=== PATIENT | male | born 1940 | race Caucasian/White ===

== ENCOUNTER 2021-02-14 11:02 | Observation (INO) ==
[2021-02-14] MEDS ORDERED: LABETALOL HCL IV 5 MG/ML 20ML IV STA (11:46)
[2021-02-14] MEDS ORDERED: MECLIZINE HCL 25 MG TAB PO STA (11:46)
[2021-02-14] MEDS ORDERED: ONDANSETRON INJ 2 MG/ML 2 ML VIAL IV STA (11:46)
[2021-02-14 11:47] LABS: Hematocrit (blood only) 43.1 % (42-52); Mean Corpuscular Hemoglobin 31.6 pg (25-34); Mean Corpuscular Hgb Conc 34.8 g/dL (32-36); Mean Corpuscular Volume 90.9 fL (80-100); Platelet Count 143 K/uL (130-400); RDW Coefficient of Variation 13.3 % (11.5-14.5); RDW Standard Deviation 44.3 fL (36.4-46.3); Red Blood Count 4.74 M/uL (4.7-6.1); White Blood Count 7.93 K/uL (4.8-10.8)
--- NOTE | 2021-02-14 11:48 | Emergency Department Note ---
Impression & Plan TIA (transient ischemic attack), COPD (chronic obstructive pulmonary disease), Vertigo, History of prostate cancer ED Provider Note NAME: DANA MIN Jr AGE: 80 SEX: M : 1940 ARRIVES VIA: Walk-In INFORMANT: Patient, ED PROVIDER(S): Rajan Moreno MD Chief Complaint: Vertigo, left lower extremity weakness HPI: Patient does present with the above symptoms. The patient states that he woke up and experienced this around 11/07/1929. Patient denies any facial droop or slurred speech. No prior history of TIA or stroke. The patient does feel as though he has vertigo and feels as though he is spinning. The patient is a known history of vertigo. Patient denies any chest pains or shortness of breath. Patient denies any abdominal pain or nausea vomiting. Patient does feel as though his left lower extremity is changed. The patient cannot further explain it but thought maybe it was weak earlier today. Patient denies any falls or trauma. He is not take any blood thinning medications. The patient's weakness has improved. At the time that this occurred the patient felt as though he was unable to steadily stand on it. ROS: See HPI for pertinent positives and negatives. A total of 10 systems were reviewed and otherwise negative. Past medical history: See below Surgical history: See below Social history: See below Physical Exam: GENERAL: NAD, wearing a mask, non-toxic. EYE EXAM: Normal conjunctiva. PERRL, no anisocoria and EOM's grossly intact w/o pain. Arcus senilis present bilaterally. NECK: Supple, no nuchal rigidity, no adenopathy, non-tender. No signs of meningismus. No carotid bruits appreciated. LUNGS: Clear to auscultation. Normal chest wall mechanics. HEART: NSR, no MRG. ABDOMEN: Abdomen soft, non-tender, normo-active bowel sounds, no masses, no rebound or guarding. BACK: No CVA TTP. SKIN: No rashes and no bruising. UPPER EXTREMITIES: Upper extremities are grossly normal. LOWER EXTREMITIES: Grossly normal, no edema. NEURO EXAM: A&O x3, cranial nerves II-XII grossly intact, normal speech, moves all 4 extremities on command w/o issue. Good finger to nose, no drift, no sensory deficits. Good [id number] bilaterally. Differential diagnoses: Infection, dehydration, metabolic abnormality, hypo/hyperglycemia, electrolyte disturbance, anemia, hypoxia, cardiac sources, intracerebral event, toxicologic, neurologic, as well as other pathologies. Course: Patient was seen and evaluated the bedside. Full history physical exam was performed. EKG interpreted by me Sinus with first-degree AV block, rate of 67, prolonged AL, normal axis, T wave inversion in lead III not in contiguous leads. No obvious ST elevations. Imaging Studies: See Below Cardiac monitoring: An order was placed for continuous cardiac monitoring. The monitor shows a rate of 65 with sinus rhythm. MDM: Patient was seen for vertigo and left lower extremity weakness. During my a ssessment the patient had an NIH of 0. Patient did have bladder completed along with CT head and CT angiography of the head neck. Patient was also treated symptomatically. Patient is a normal white count and hemoglobin. The patient's kidney function is unremarkable. Covid negative. CT head and CT angiogram of his head neck are negative acute for aneurysm dissection or ICH. Patient does have right upper lobe process and was informed of these findings. The patient does have a known history of COPD emphysema. Patient is not a smoker. Given the patient's weakness with the vertigo and the patient states that his vertigo is still present but at its baseline as he suffers chronically from this but it is improved. Given this with the associated weakness TIA is certainly possibility. I did speak to the on-call hospitalist Dr. Hahn and the patient was admitted to the medicine service. Past Med/Surg History Medical History (Updated 02/14/21 @ 17:20 by Rajan Moreno MD) COPD (chronic obstructive pulmonary disease) GERD (gastroesophageal reflux disease) History of prostate cancer Hypertension Vertigo Surgical History (Updated 02/14/21 @ 17:13 by Rajan Moreno MD) No pertinent past surgical history Social History Smoking Status: Former smoker Feels Safe at Home: Yes Allergies Allergies Allergy/AdvReac Type Severity Reaction Status Date / Time No Known Allergies Allergy Unverified 02/14/21 12:25 Home Meds Home Medications Medication Instructions Recorded Confirmed fluticasone furoate 100 1 inh INHALATION Q2D 02/14/21 02/14/21 mcg-vilanterol 25 mcg/dose inhalation powder (Breo Ellipta) losartan 25 mg tablet 25 mg PO DAILY 02/14/21 02/14/21 multivitamin 1 tab PO DAILY 02/14/21 02/14/21 pantoprazole 40 mg tablet,delayed 40 mg PO DAILY 02/14/21 02/14/21 release Results & Data (ED) Vital Signs Vital Signs - 24 hr 02/14/21 11:22 02/14/21 11:43 02/14/21 11:49 Temperature 36.6 C Temperature Source Temporal Artery Scan Pulse Rate 71 73 Pulse Rate [Left Apical] Pulse Rate from SpO2 Sensor 74 Respiratory Rate 20 14 Respiratory Effort / Characteristics Non-Labored Spontaneous Respiratory Depth Normal Respiratory Pattern Regular Blood Pressure 217/88 H 202/106 H Blood Pressure [Right Arm] Blood Pressure Mean 131 138 Blood Pressure Mean [Right Arm] Blood Pressure Position Sitting Blood Pressure Position [Right Arm] Pulse Oximetry 99 100 99 Oxygen Delivery Method Room Air Room Air Sepsis Recent Fever Within 48 Hours No Sepsis New/Unexplained Change in Mental Status No Sepsis Action Taken by Nursing No Action Required 02/14/21 11:50 02/14/21 12:00 02/14/21 12:10 Temperature Temperature Source Pulse Rate 60 62 56 L Pulse Rate [Left Apical] Pulse Rate from SpO2 Sensor 57 L Respiratory Rate 16 15 13 Respiratory Effort / Characteristics Respiratory Depth Respiratory Pattern Blood Pressure 192/79 H Blood Pressure [Right Arm] Blood Pressure Mean 116 Blood Pressure Mean [Right Arm] Blood Pressure Position Blood Pressure Position [Right Arm] Pulse Oximetry 97 98 98 Oxygen Delivery Method Room Air Sepsis Recent Fever Within 48 Hours Sepsis New/Unexplained Change in Mental Status Sepsis Action Taken by Nursing 02/14/21 12:20 02/14/21 12:30 02/14/21 12:48 Temperature Temperature Source Pulse Rate 52 L 52 L Pulse Rate [Left Apical] 58 L Pulse Rate from SpO2 Sensor 52 L 51 L Respiratory Rate 17 20 18 Respiratory Effort / Characteristics Respiratory Depth Normal Respiratory Pattern Blood Pressure 180/82 H Blood Pressure [Right Arm] 168/86 H Blood Pressure Mean 114 Blood Pressure Mean [Right Arm] 113 Blood Pressure Position Blood Pressure Position [Right Arm] Lying Pulse Oximetry 96 98 100 Oxygen Delivery Method Room Air Sepsis Recent Fever Within 48 Hours Sepsis New/Unexplained Change in Mental Status Sepsis Action Taken by Nursing 02/14/21 15:35 02/14/21 16:56 Temperature Temperature Source Pulse Rate Pulse Rate [Left Apical] 55 L 55 L Pulse Rate from SpO2 Sensor Respiratory Rate 18 18 Respiratory Effort / Characteristics Respiratory Depth Respiratory Pattern Blood Pressure Blood Pressure [Right Arm] 192/81 H Blood Pressure Mean Blood Pressure Mean [Right Arm] 118 Blood Pressure Position Blood Pressure Position [Right Arm] Pulse Oximetry 99 Oxygen Delivery Method Room Air Sepsis Recent Fever Within 48 Hours Sepsis New/Unexplained Change in Mental Status Sepsis Action Taken by [place] Medications Current Medication List: was personally reviewed by me Laboratory Data Attestation: I reviewed the patient's lab results. Result diagrams: 02/14/21 11:02/14/21 11: Lab Results 02/14/21 02/14/21 02/14/21 Range/Units 11:30 11: 11:30 WBC 7.93 (4.8-10.8) K/uL RBC 4.74 (4.7-6.1) M/uL Hgb 15.0 (14.0-18.0) g/dL POC Hgb (14.0-18.0) g/dl Hct 43.1 (42-52) % POC Hct (42-52) % MCV 90.9 (80-100) fL MCH 31.6 (25-34) pg MCHC 34.8 (32-36) g/dL RDW Std Deviation 44.3 (36.4-46.3) fL RDW Coeff of Ania 13.3 (11.5-14.5) % Plt Count 143 (130-400) K/uL MPV 12.0 H (7.4-10.4) fL PT 10.3 (9.0-12.0) Seconds INR 1.0 (0.9-1.1) APTT 26.4 (21.0-31.0) Seconds PTT Ratio 1.0 POC Sodium (135-144) mmol/L Sodium 140 (136-145) mmol/L POC Potassium (3.3-5.0) mmol/L Potassium 4.2 (3.5-5.1) mmol/L POC Chloride (101-112) mmol/L Chloride 108 H (98-107) mmol/L Carbon Dioxide 26 (21-32) mmol/L POC Total CO2 (24-31) mmol/L Anion Gap 6.0 (3-11) POC Anion Gap (16-25) mmol/L POC BUN (7-18) mg/dl BUN 11 (7-18) mg/dl Creatinine 1.14 (0.6-1.4) mg/dl POC Creatinine (0.6-1.3) mg/dl Est Cr Clr Drug Dosing 55.0 ml/min Est GFR ( Amer) 70.0 ml/min Est GFR (Non-Af Amer) 60.4 ml/min BUN/Creatinine Ratio 9.8 L (10-20) Glucose 95 (70-99) mg/dl POC Glucose (70-99) mg/dl POC Glucose (other) (70-99) mg/dl Calcium 9.2 (8.5-10.1) mg/dl POC Ioniz Calcium Amanda (1.12-1.32) mmol/l Magnesium 2.2 (1.8-2.4) mg/dl Total Bilirubin 0.9 (0.2-1) mg/dl AST 19 (15-37) U/L ALT 25 (12-78) U/L Alkaline Phosphatase 89 (45-117) U/L Total Protein 7.6 (6.4-8.2) gm/dl Albumin 3.9 (3.4-5.0) gm/dl Globulin 3.7 (2.5-4.0) gm/dl Albumin/Globulin Ratio 1.1 (0.9-2) COVID-19 Eval Order SARS-CoV-2 (PCR) (Negative) 02/14/21 02/14/21 02/14/21 Range/Units 11:46 11:50 11:50 WBC (4.8-10.8) K/uL RBC (4.7-6.1) M/uL Hgb (14.0-18.0) g/dL POC Hgb (14.0-18.0) g/dl Hct (42-52) % POC Hct (42-52) % MCV (80-100) fL MCH (25-34) pg MCHC (32-36) g/dL RDW Std Deviation (36.4-46.3) fL RDW Coeff of Ania (11.5-14.5) % Plt Count (130-400) K/uL MPV (7.4-10.4) fL PT (9.0-12.0) Seconds INR (0.9-1.1) APTT (21.0-31.0) Seconds PTT Ratio POC Sodium (135-144) mmol/L Sodium (136-145) mmol/L POC Potassium (3.3-5.0) mmol/L Potassium (3.5-5.1) mmol/L POC Chloride (101-112) mmol/L Chloride (98-107) mmol/L Carbon Dioxide (21-32) mmol/L POC Total CO2 (24-31) mmol/L Anion Gap (3-11) POC Anion Gap (16-25) mmol/L POC BUN (7-18) mg/dl BUN (7-18) mg/dl Creatinine (0.6-1.4) mg/dl POC Creatinine (0.6-1.3) mg/dl Est Cr Clr Drug Dosing ml/min Est GFR ( Amer) ml/min Est GFR (Non-Af Amer) ml/min BUN/Creatinine Ratio (10-20) Glucose (70-99) mg/dl POC Glucose 91 (70-99) mg/dl POC Glucose (other) (70-99) mg/dl Calcium (8.5-10.1) mg/dl POC Ioniz Calcium Amanda (1.12-1.32) mmol/l Magnesium (1.8-2.4) mg/dl Total Bilirubin (0.2-1) mg/dl AST (15-37) U/L ALT (12-78) U/L Alkaline Phosphatase (45-117) U/L Total Protein (6.4-8.2) gm/dl Albumin (3.4-5.0) gm/dl Globulin (2.5-4.0) gm/dl Albumin/Globulin Ratio (0.9-2) COVID-19 Eval Order Covid19 at [facility] SARS-CoV-2 (PCR) NEGATIVE (Negative) 02/14/21 Range/Units 11:54 WBC (4.8-10.8) K/uL RBC (4.7-6.1) M/uL Hgb (14.0-18.0) g/dL POC Hgb 13.3 L (14.0-18.0) g/dl Hct (42-52) % POC Hct 39 L (42-52) % MCV (80-100) fL MCH (25-34) pg MCHC (32-36) g/dL RDW Std Deviation (36.4-46.3) fL RDW Coeff of Ania (11.5-14.5) % Plt Count (130-400) K/uL MPV (7.4-10.4) fL PT (9.0-12.0) Seconds INR (0.9-1.1) APTT (21.0-31.0) Seconds PTT Ratio POC Sodium 142 (135-144) mmol/L Sodium (136-145) mmol/L POC Potassium 3.9 (3.3-5.0) mmol/L Potassium (3.5-5.1) mmol/L POC Chloride 103 (101-112) mmol/L Chloride (98-107) mmol/L Carbon Dioxide (21-32) mmol/L POC Total CO2 24 (24-31) mmol/L Anion Gap (3-11) POC Anion Gap 19.0 (16-25) mmol/L POC BUN 11 (7-18) mg/dl BUN (7-18) mg/dl Creatinine (0.6-1.4) mg/dl POC Creatinine 1.2 (0.6-1.3) mg/dl Est Cr Clr Drug Dosing ml/min Est GFR ( Amer) ml/min Est GFR (Non-Af Amer) ml/min BUN/Creatinine Ratio (10-20) Glucose (70-99) mg/dl POC Glucose (70-99) mg/dl POC Glucose (other) 97 (70-99) mg/dl Calcium (8.5-10.1) mg/dl POC Ioniz Calcium Amanda 1.21 (1.12-1.32) mmol/l Magnesium (1.8-2.4) mg/dl Total Bilirubin (0.2-1) mg/dl AST (15-37) U/L ALT (12-78) U/L Alkaline Phosphatase (45-117) U/L Total Protein (6.4-8.2) gm/dl Albumin (3.4-5.0) gm/dl Globulin (2.5-4.0) gm/dl Albumin/Globulin Ratio (0.9-2) COVID-19 Eval Order SARS-CoV-2 (PCR) (Negative) Administered Medications Discontinued Medications Ioversol (Optiray 320 125ml) 120 ml IV ONCE ONE Stop: 02/14/21 12:49 Last Admin: 02/14/21 12:38 Dose: 120 ml Documented by: [id number] Labetalol HCl (Labetalol Hcl Iv 5 Mg/Ml 20ml) 10 mg IV NOW STA Stop: 02/14/21 11:47 Last Admin: 02/14/21 11:57 Dose: 10 mg Documented by: [id number] Cosigned by: [id number] Meclizine HCl (Meclizine Hcl 25 Mg Tab) 25 mg PO NOW STA Stop: 02/14/21 11:47 Last Admin: 02/14/21 11:58 Dose: 25 mg Documented by: [id number] Ondansetron HCl (Ondansetron Inj 2 Mg/Ml 2 Ml Vial) 4 mg IV NOW STA Stop: 02/14/21 11:47 Last Admin: 02/14/21 11:57 Dose: 4 mg Documented by: [id number] Imaging Data Radiologist's Impression: Chest X-Ray 02/14/21 11:29 XR chest 1V portable HISTORY: Vertigo. stroke alert COMPARISON: None. FINDINGS: The lungs are clear. Cardiac silhouette is normal in size. No pleural effusions. No pneumothorax. IMPRESSION: No acute process. ACT 112: Negative or not required by law. Electronically signed by: Alberto Mcdonald M.D. 02/14/2021 3:[address] 02/14/21 11:29 CT head/brain wo con CLINICAL HISTORY: Stroke Alert Technique: Contiguous axial CT images of the head were acquired from the base of the skull to the vertex without intravenous contrast administration. Images were viewed in brain, subdural and bone windows. Automated dose lowering techniques and/or adjustment according to patient size were utilized for this exam. Comparison: None available at the time of this dictation. Findings: The ventricles, basal cisterns, and cerebral sulci are normal. There is no acute intracranial hemorrhage or evidence of acute territorial infarction. Neither mass effect, shift of the midline structures, nor abnormal extra-axial fluid collections are shown. Imaged portions of the paranasal sinuses and mastoid air cells are clear. The orbits appear normal. There are no acute fractures of the calvaria or scalp swelling. Impression: No acute intracranial hemorrhage, no evidence of acute territorial infarction or other acute intracranial disease process. ACT 112: Negative or not required by law. Electronically signed by: Javier Meredith M.D. 02/14/2021 11:54 AM Head CTA 02/14/21 11:46 HEAD CTA HISTORY: vertigo, left lower extremity weakness TECHNIQUE: Multiaxial CT images of the head were performed both before and after the intravenous administration of contrast to evaluate the major cerebral vessels. Maximum intensity projection images were also obtained. A dose lowering technique was utilized adhering to the principles of ALARA. COMPARISON: None. FINDINGS: Please refer to same day head CT for further evaluation of the brain parenchyma. The major dural venous sinuses are patent. The distal basilar artery and bilateral P1 segments are hypoplastic. The pathology assistant are primarily fed through the bilateral posterior communicating arteries. These are considered to be normal variants. Mild calcified plaque within the bilateral carotid siphons. Visualized intracranial internal carotid arteries, distal vertebral arteries, and basilar artery are patent. There is no significant stenosis, occlusion, or aneurysm seen within the bilateral ACAs, MCAs, or pathology assistant. IMPRESSION: No significant stenosis, occlusion, or aneurysm within the [place]. ACT 112: Negative or not required by law. Electronically signed by: Alberto Mcdonald M.D. 02/14/2021 12:57 PM Neck CTA 02/14/21 11:46 CT ANGIOGRAM OF THE NECK CLINICAL HISTORY: Vertigo. COMPARISON STUDY: No priors. TECHNIQUE: Following the IV administration of 120 of Optiray 320, CT angiogram of the neck was performed from the aortic arch to the skull base. Images are reviewed in the axial, sagittal, and coronal planes. 3-D MIPS images are created and assessed. IV contrast was administered without complication. All measurements were calculated based on NASCET criteria. A dose lowering technique was utilized adhering to the principles of ALARA. FINDINGS: Thoracic aorta: Visualized portions of the thoracic aorta are normal in caliber. The aortic arch demonstrates standard 3-vessel anatomy. Right carotid arterial system: The right common carotid artery is widely patent. Advanced atherosclerotic plaque in the carotid bulb causes less than 50% luminal narrowing at the origin of the internal carotid artery. The remainder of the right internal carotid artery as was the right external carotid artery are widely patent. Left carotid arterial system: The left common carotid artery is widely patent. There is advanced atherosclerotic plaque in the carotid bulb. This causes less than 50% luminal narrowing at the origin of the left internal carotid artery. The remainder of the left internal carotid artery as well as the left external carotid artery are widely patent. Vertebral arteries: The vertebral arteries are widely patent bilaterally and codominant. Subclavian arteries: Mildly patent bilaterally. Intracranial vasculature: The visualized intracranial vessels at the skull base are patent. Jugular veins: Widely patent bilaterally. Brain parenchyma: The visualized brain parenchyma the skull base is within normal limits. Lung apices: Emphysematous change is noted. There is a 3.6 x 1.6 cm groundglass focus with cystic change identified in the right apex on image #32. Soft tissues: The visualized pharyngeal soft tissues are normal in appearance noting angiographic phase technique. The oropharyngeal airway appears widely patent. The salivary and thyroid glands are normal in appearance. No cervical lymphadenopathy is seen. Skeletal structures: The skeletal structures are osteopenic. The visualized ca lvarium at the skull base appears intact. The imaged cervical spine is maintained noting multilevel spondylosis. No lytic or blastic lesion is seen. Sinuses and mastoids: Mild mucosal thickening is seen within the left sphenoid sinus and both maxillary antra. There is trace left mastoid effusion. The right mastoid air cells are well pneumatized. IMPRESSION: 1. Atherosclerotic plaque causes less than 50% luminal narrowing at the origin of both internal carotid arteries. 2. Otherwise unremarkable CT angiogram of the neck. 3. Emphysema. 4. There is a 3.6 cm groundglass focus in the right upper lobe as detailed above. This is pathologically indeterminant, and although this could be on an infectious/inflammatory basis a low-grade neoplasm could also have this appearance. Follow-up with a dedicated chest CT in one month's time is recommended for reevaluation. ACT 112: Positive. There are findings on this exam that require communication between the performing entity and the patient following Patient Test Result Information Act ([place] Act 112) guidelines. Electronically signed by: Zach Rincon M.D. 02/14/2021 12:58 PM Discharge Plan Visit Data Chief Complaint: Vertigo Stated Complaint: DIZZY/LEFT LEG - COULD HARDLY STAND ED Provider: Rajan Moreno Discharge Problem: TIA (transient ischemic attack), COPD (chronic obstructive pulmonary disease), Vertigo, History of prostate cancer Patient Disposition: Admitted As Inpatient Forms Stand Alone Forms: [facility] Prescriptions Prescriptions: No Action multivitamin Tablet 1 tab PO DAILY RF: 0 pantoprazole 40 mg tablet,delayed release (DR/EC) 40 mg PO DAILY RF: 0 losartan 25 mg tablet 25 mg PO DAILY RF: 0 Breo Ellipta 100-25 mcg/dose blister with device 1 inh INHALATION Q2D RF: 0 Referrals Referrals: PCP,NO [Physician] -
--- NOTE | 2021-02-14 11:55 | CT Scan Report ---
CT head/brain wo con CLINICAL HISTORY: Stroke Alert Technique: Contiguous axial CT images of the head were acquired from the base of the skull to the marybeth aguila without intravenous contrast administration. Images were viewed in brain, subdural and bone [facility]. Automated dose lowering techniques and/or adjustment according to patient size were utilized for this exam. Comparison: None available at the time of this dictation. Findings: The ventricles, basal cisterns, and cerebral sulci are normal. There is no acute intracranial hemorrh age or evidence of acute territorial infarction. Neither mass effect, shift of the midline structures , nor abnormal extra-axial fluid collections are shown. Imaged portions of the paranasal sinuses and mastoid air cells are clear. The orbits appear normal. There are no acute fractures of the calvaria or scalp swelling. Impression: No acute intracranial hemorrhage, no evidence of acute territorial infarction or other acute intracra nial disease process. ACT 112: Negative or not required by law. Electronically signed by: Javier Meredith M.D. 02/14/2021 11:54 AM
[2021-02-14 12:06] LABS: Partial Thromboplastin Time 26.4 Seconds (21.0-31.0); Prothrombin Time 10.3 Seconds (9.0-12.0)
[2021-02-14 12:06] LABS: iSTAT Creatinine 1.2 mg/dl (0.6-1.3); iSTAT Hemoglobin 13.3 g/dl (14.0-18.0); iSTAT Ionized Calcium 1.21 mmol/l (1.12-1.32); iSTAT Potassium 3.9 mmol/L (3.3-5.0)
[2021-02-14 12:14] LABS: Albumin Globulin Ratio 1.1 (0.9-2); Albumin Level 3.9 gm/dl (3.4-5.0); BUN Creatinine Ratio 9.8 (10-20); Bilirubin,Total 0.9 mg/dl (0.2-1); Calcium 9.2 mg/dl (8.5-10.1); Est GFR (Non-African American) 60.4 ml/min; Globulin 3.7 gm/dl (2.5-4.0); Magnesium 2.2 mg/dl (1.8-2.4); Potassium 4.2 mmol/L (3.5-5.1); Total Protein 7.6 gm/dl (6.4-8.2)
[2021-02-14] MEDS ORDERED: OPTIRAY 320 125ml IV ONE (12:48)
--- NOTE | 2021-02-14 12:58 | CT Scan Report ---
HEAD CTA HISTORY: vertigo, left lower extremity weakness TECHNIQUE: Multiaxial CT images of the head were performed both before and after the intravenous admi nistration of contrast to evaluate the major cerebral vessels. Maximum intensity projection images we re also obtained. A dose lowering technique was utilized adhering to the principles of ALARA. COMPARISON: None. FINDINGS: Please refer to same day head CT for further evaluation of the brain parenchyma. The major dural venous sinuses are patent. The distal basilar artery and bilateral P1 segments are hypoplastic. The watershed program manager are primarily fed through the bilateral posterior communicating arteries. These are conside red to be normal variants. Mild calcified plaque within the bilateral carotid siphons. Visualized int racranial internal carotid arteries, distal vertebral arteries, and basilar artery are patent. There is no significant stenosis, occlusion, or aneurysm seen within the bilateral ACAs, MCAs, or watershed program manager. IMPRESSION: No significant stenosis, occlusion, or aneurysm within the [place]. ACT 112: Negative or not required by law. Electronically signed by: Alberto Mcdonald M.D. 02/14/2021 12:57 PM
--- NOTE | 2021-02-14 12:59 | CT Scan Report ---
CT ANGIOGRAM OF THE NECK CLINICAL HISTORY: Vertigo. COMPARISON STUDY: No priors. TECHNIQUE: Following the IV administration of 120 of Optiray 320, CT angiogram of the neck was perfor med from the aortic arch to the skull base. Images are reviewed in the axial, sagittal, and coronal p lanes. 3-D MIPS images are created and assessed. IV contrast was administered without complication. A ll measurements were calculated based on NASCET criteria. A dose lowering technique was utilized adh ering to the principles of ALARA. FINDINGS: Thoracic aorta: Visualized portions of the thoracic aorta are normal in caliber. The aortic arch demo nstrates standard 3-vessel anatomy. Right carotid arterial system: The right common carotid artery is widely patent. Advanced atheroscler otic plaque in the carotid bulb causes less than 50% luminal narrowing at the origin of the internal carotid artery. The remainder of the right internal carotid artery as was the right external carotid artery are widely patent. Left carotid arterial system: The left common carotid artery is widely patent. There is advanced athe rosclerotic plaque in the carotid bulb. This causes less than 50% luminal narrowing at the origin of the left internal carotid artery. The remainder of the left internal carotid artery as well as the le ft external carotid artery are widely patent. Vertebral arteries: The vertebral arteries are widely patent bilaterally and codominant. Subclavian arteries: Mildly patent bilaterally. Intracranial vasculature: The visualized intracranial vessels at the skull base are patent. Jugular veins: Widely patent bilaterally. Brain parenchyma: The visualized brain parenchyma the skull base is within normal limits. Lung apices: Emphysematous change is noted. There is a 3.6 x 1.6 cm groundglass focus with cystic jaden nge identified in the right apex on image #32. Soft tissues: The visualized pharyngeal soft tissues are normal in appearance noting angiographic pha se technique. The oropharyngeal airway appears widely patent. The salivary and thyroid glands are nor mal in appearance. No cervical lymphadenopathy is seen. Skeletal structures: The skeletal structures are osteopenic. The visualized calvarium at the skull ba se appears intact. The imaged cervical spine is maintained noting multilevel spondylosis. No lytic or blastic lesion is seen. Sinuses and mastoids: Mild mucosal thickening is seen within the left sphenoid sinus and both maxilla ry antra. There is trace left mastoid effusion. The right mastoid air cells are well pneumatized. IMPRESSION: 1. Atherosclerotic plaque causes less than 50% luminal narrowing at the origin of both internal carot id arteries. 2. Otherwise unremarkable CT angiogram of the neck. 3. Emphysema. 4. There is a 3.6 cm groundglass focus in the right upper lobe as detailed above. This is pathologica lly indeterminant, and although this could be on an infectious/inflammatory basis a low-grade neoplas m could also have this appearance. Follow-up with a dedicated chest CT in one month's time is recomme nded for reevaluation. ACT 112: Positive. There are findings on this exam that require communication between the performing entity and the patient following Patient Test Result Information Act ([place] Act 112) guidelines. Electronically signed by: Zach Rincon M.D. 02/14/2021 12:58 PM
--- NOTE | 2021-02-14 14:22 | History & Physical Report ---
Date of Service February 14, 2021 Assessment & Plan (1) TIA (transient ischemic attack): Plan: Patient states that his dizzy episode this morning was markedly different than previous vertigo. Patient states his left leg did not listen to what he was telling him he drugged a bit. These symptoms of both since resolved initial imaging of his brain and intracranial and neck blood supply is unremarkable the patient took aspirin 81 at home. Patiently placed on telemetry echocardiogram will be ordered MRI of his brain will be ordered he will be continued on aspirin and started on atorvastatin. (2) COPD (chronic obstructive pulmonary disease): Plan: Patient COPD has been stable for some time on Brio Ellipta (3) Hypertension: Plan: Patient's blood pressure was markedly elevated on presentation patient denies missing her medications typically only controlled with losartan. Hard to know whether his hypertension was cause or effect being could this be hypertensive urgency causing his neurological symptoms or could be neurological symptoms causing his hypertension. We will continue to monitor (4) GERD (gastroesophageal reflux disease): Plan: Patient continues on pantoprazole 40 mg a day (5) Vertigo: Plan: Patient suffers from vertigo this however did not feel anything like his previous vertigo symptoms. (6) DVT prophylaxis: Plan: Patient will be early ambulation for DVT prevention at this time (7) History of prostate cancer: Plan: radiation seeds, with no incontinence or retention History of Present Illness Primary Care Provider: Adrián Colin PA-C Patient presents with description of vertigo, left lower extremity weakness. The patient states that he woke up and experienced the symptoms patient went to bed in normal state. The Patient denies any facial droop or slurred speech. No prior history of TIA or stroke. The patient does feel as though he is spinning. The patient has a known history of vertigo. Patient denies any chest pains or shortness of breath. Patient denies any abdominal pain or nausea vomiting. Patient does feel as though his left lower extremity has resolved. . Patient denies any falls or trauma. He is not take any blood thinning medications. Patient initial NIH stroke scale of 0 therefore telestroke was not enacted by the emergency department physician. Patient was given meclizine in emergency department CT head on presentation shows no acute cranial hemorrhage evidence of acute territorial infarction or other intracranial disease CT angiography of the head and neck shows no significant stenosis occlusion or aneurysm within the [place], internal carotid arteries have less than 50% narrowing. There is incidentally noted 3.6 cm groundglass focus of the right upper lobe as detailed with cystic change with a baseline of emphysema. Allergies Allergy/AdvReac Type Severity Reaction Status Date / Time No Known Allergies Allergy Unverified 02/14/21 12:25 Home Medications Medication Instructions Recorded Confirmed Type fluticasone furoate 100 1 inh INHALATION Q2D 02/14/21 02/14/21 History mcg-vilanterol 25 mcg/dose inhalation powder (Breo Ellipta) losartan 25 mg tablet 25 mg PO DAILY 02/14/21 02/14/21 History multivitamin 1 tab PO DAILY 02/14/21 02/14/21 History pantoprazole 40 mg tablet,delayed 40 mg PO DAILY 02/14/21 02/14/21 History release Past Med/Surg History Medical History (Updated 02/14/21 @ 15:46 by Jevon Hahn MD) COPD (chronic obstructive pulmonary disease) GERD (gastroesophageal reflux disease) Hypertension Social History Smoking Status: Former smoker Feels Safe at Home: Yes Review of Systems Review of Systems: Mild distress and fatigue no headache, no visual changes no speech or swallowing issues no chest pain, pressure or palpitations no shortness of breath, cough or wheezes no abdominal pain, nausea or vomiting, diarrhea or constipation no dysuria, hematuria or frequency no focal joint pain or swelling no back pain, CVA tenderness or radicular pain no bruising, bleeding or rashes no focal signs of weakness or numbness or altered sensation no complaints of anxiety or depression.. Physical Exam Physical Exam: The patient appeared well nourished and normally developed. Vital signs as documented. Head exam is normocephalic atraumatic Neck is without JVD, thyromegaly, or carotid bruits. Lungs are clear to auscultation, no focal loss of breath sounds Cardiac exam, Rhythm is regular.. No murmurs, rubs or gallops. Abdominal exam reveals normal bowel sounds, soft non tender, no masses Extremities are nonedematous and both pedal pulses are present Neurologic exam is alert and oriented, no focal loss of strength or sensation Skin is without bruises or rashes Psychologically is without concerns for anxiety or depression Results & Data Results & Data ([facility]) Vital Signs (Past 12 Hours) Vital Signs Temp Pulse Pulse Resp BP BP Pulse Ox 02/14/21 12:48 58 L 18 168/86 H 100 02/14/21 12:30 52 L 20 180/82 H 98 02/14/21 12:20 52 L 17 96 02/14/21 12:10 56 L 13 98 02/14/21 12:00 62 15 192/79 H 98 02/14/21 11:50 60 16 97 02/14/21 11:49 99 02/14/21 11:43 73 14 202/106 H 100 02/14/21 11:22 97.9 F 71 20 217/88 H 99 PG Care Time/CCT Total # of Minutes Spent Total Time Spent with Patient: Total time spent is greater than 50% in coordination of care (as documented) at patient's floor/unit and/or counseling patient: Coding Level of Care Code INT OBSERVATION CARE 70M LVL 3 Diagnoses COPD (chronic obstructive pulmonary disease) J44.9 Hypertension I10 GERD (gastroesophageal reflux disease) K21.9 Vertigo R42 TIA (transient ischemic attack) G45.9 DVT prophylaxis Z29.9 History of prostate cancer Z85.46
--- NOTE | 2021-02-14 15:30 | XRay Report ---
XR chest 1V portable HISTORY: Vertigo. stroke alert COMPARISON: None. FINDINGS: The lungs are clear. Cardiac silhouette is normal in size. No pleural effusions. No pneumot horax. IMPRESSION: No acute process. ACT 112: Negative or not required by law. Electronically signed by: Alberto Mcdonald M.D. 02/14/2021 3:28 PM
--- NOTE | 2021-02-14 16:39 | Electrocardiogram Report ---
Test Reason : Blood Pressure : / mmHG Vent. Rate : 067 BPM Atrial Rate : 067 BPM P-R Int : 230 ms QRS Dur : 088 ms QT Int : 414 ms P-R-T Axes : 087 026 026 degrees QTc Int : 437 ms Sinus rhythm with 1st degree A-V block with Premature supraventricular complexes Otherwise normal ECG No previous ECGs available Confirmed by Ton Chapin ([id number]) on 02/14/2021 4:38:34 PM Referred By: REFERRED SELF Confirmed By:Ton Chapin
[2021-02-14] MEDS ORDERED: PHARMACIST DISCHARGE MED REC CONSULT PRN (18:54)
[2021-02-14] MEDS ORDERED: ALUMINUM/MAGNESIUM SUSP 30 ML UDC PO PRN (18:54)
[2021-02-14] MEDS ORDERED: ONDANSETRON INJ 2 MG/ML 2 ML VIAL IV PRN (18:54)
[2021-02-14] MEDS ORDERED: ACETAMINOPHEN 325 MG TAB PO PRN (18:54)
[2021-02-14] MEDS ORDERED: hydrALAZINE HCL 20 MG/ML VIAL IV PRN (18:54)
--- NOTE | 2021-02-14 19:52 | XRay Report ---
XR orbits for MRI HISTORY: 80 years-old Male Screening for foreign body for MRI COMPARISON: Head CT of same day TECHNIQUE: 3 views of the orbits FINDINGS: No opaque foreign body. Orbits identified. No acute facial bone fracture. The mastoid air cells and p aranasal sinuses are generally clear. IMPRESSION: No opaque foreign body of the orbits. ACT 112: Negative or not required by law. The above report was generated using voice recognition software. It may contain grammatical, syntax o r spelling errors. Electronically signed by: Jorge Cotton M.D. 02/14/2021 7:51 PM
[2021-02-15 08:01] LABS: Basophils # (auto) 0.04 K/uL (0-0.2); Basophils % (auto) 0.6 %; Eosinophils # (auto) 0.26 K/uL (0-0.5); Eosinophils % (auto) 3.6 %; Hematocrit (blood only) 41.3 % (42-52); Hemoglobin 13.9 g/dL (14.0-18.0); Immature Granulocytes # (auto) 0.03 K/uL (0.00-0.02); Immature Granulocytes % (auto) 0.4 %; Lymphocytes # (auto) 1.55 K/uL (1.2-3.4); Lymphocytes % (auto) 21.4 %; Mean Corpuscular Hemoglobin 31.4 pg (25-34); Mean Corpuscular Hgb Conc 33.7 g/dL (32-36); Mean Corpuscular Volume 93.4 fL (80-100); Mean Platelet Volume 12.3 fL (7.4-10.4); Monocytes # (auto) 0.75 K/uL (0.11-0.59); Monocytes % (auto) 10.3 %; Neutrophils # (auto) 4.62 K/uL (1.4-6.5); Neutrophils % (auto) 63.7 %; Platelet Count 147 K/uL (130-400); RDW Coefficient of Variation 13.6 % (11.5-14.5); RDW Standard Deviation 46.5 fL (36.4-46.3); Red Blood Count 4.42 M/uL (4.7-6.1); White Blood Count 7.25 K/uL (4.8-10.8)
--- NOTE | 2021-02-15 08:14 | Hospitalist Progress Note ---
Date of Service February 15, 2021 Assessment & Plan Admission and Anticipated Discharge Date Admission Date: February 14, 2021 Results & Data Results & Data ([facility]) Vital Signs (Past 12 Hours) Vital Signs Temp Pulse Pulse Resp BP BP Pulse Ox 02/15/21 08:00 57 L 02/15/21 06:30 36.5 C 52 L 18 149/63 H 98 02/15/21 04:46 56 L 02/14/21 22:52 53 L 14 133/60 96 Laboratory Results 02/15/21 02/15/21 02/15/21 Range/Units 07:23 07:23 07:23 WBC 7.25 (4.8-10.8) K/uL RBC 4.42 L (4.7-6.1) M/uL Hgb 13.9 L (14.0-18.0) g/dL POC Hgb (14.0-18.0) g/dl Hct 41.3 L (42-52) % POC Hct (42-52) % MCV 93.4 (80-100) fL MCH 31.4 (25-34) pg MCHC 33.7 (32-36) g/dL RDW Std Deviation 46.5 H (36.4-46.3) fL RDW Coeff of Ania 13.6 (11.5-14.5) % Plt Count 147 (130-400) K/uL MPV 12.3 H (7.4-10.4) fL Immature Gran % (Auto) 0.4 % Neut % (Auto) 63.7 % Lymph % (Auto) 21.4 % Wetzel % (Auto) 10.3 % Eos % (Auto) 3.6 % Baso % (Auto) 0.6 % Neut # (Auto) 4.62 (1.4-6.5) K/uL Lymph # (Auto) 1.55 (1.2-3.4) K/uL Wetzel # (Auto) 0.75 H (0.11-0.59) K/uL Eos # (Auto) 0.26 (0-0.5) K/uL Baso # (Auto) 0.04 (0-0.2) K/uL Immature Gran # (Auto) 0.03 H (0.00-0.02) K/uL PT (9.0-12.0) Seconds INR (0.9-1.1) APTT (21.0-31.0) Seconds PTT Ratio POC Sodium (135-144) mmol/L Sodium Pending (136-145) mmol/L POC Potassium (3.3-5.0) mmol/L Potassium Pending (3.5-5.1) mmol/L POC Chloride (101-112) mmol/L Chloride Pending (98-107) mmol/L Carbon Dioxide Pending (21-32) mmol/L POC Total CO2 (24-31) mmol/L Anion Gap Pending (3-11) POC Anion Gap (16-25) mmol/L POC BUN (7-18) mg/dl BUN Pending (7-18) mg/dl Creatinine Pending (0.6-1.4) mg/dl POC Creatinine (0.6-1.3) mg/dl Est Cr Clr Drug Dosing Pending ml/min Est GFR ( Amer) Pending ml/min Est GFR (Non-Af Amer) Pending ml/min BUN/Creatinine Ratio Pending (10-20) Glucose Pending (70-99) mg/dl POC Glucose (70-99) mg/dl POC Glucose (other) (70-99) mg/dl Estimat Average Glucose Pending Hemoglobin A1c Pending Calcium Pending (8.5-10.1) mg/dl POC Ioniz Calcium Amanda (1.12-1.32) mmol/l Magnesium (1.8-2.4) mg/dl Total Bilirubin (0.2-1) mg/dl AST (15-37) U/L ALT (12-78) U/L Alkaline Phosphatase (45-117) U/L Total Protein (6.4-8.2) gm/dl Albumin (3.4-5.0) gm/dl Globulin (2.5-4.0) gm/dl Albumin/Globulin Ratio (0.9-2) Triglycerides Pending Cholesterol Pending LDL Cholesterol, Calc Pending VLDL Cholesterol, Calc Pending HDL Cholesterol Pending Cholesterol/HDL Ratio Pending COVID-19 Eval Order SARS-CoV-2 (PCR) (Negative) 02/14/21 02/14/21 02/14/21 Range/Units 11:54 11:50 11:50 WBC (4.8-10.8) K/uL RBC (4.7-6.1) M/uL Hgb (14.0-18.0) g/dL POC Hgb 13.3 L (14.0-18.0) g/dl Hct (42-52) % POC Hct 39 L (42-52) % MCV (80-100) fL MCH (25-34) pg MCHC (32-36) g/dL RDW Std Deviation (36.4-46.3) fL RDW Coeff of Ania (11.5-14.5) % Plt Count (130-400) K/uL MPV (7.4-10.4) fL Immature Gran % (Auto) % Neut % (Auto) % Lymph % (Auto) % Wetzel % (Auto) % Eos % (Auto) % Baso % (Auto) % Neut # (Auto) (1.4-6.5) K/uL Lymph # (Auto) (1.2-3.4) K/uL Wetzel # (Auto) (0.11-0.59) K/uL Eos # (Auto) (0-0.5) K/uL Baso # (Auto) (0-0.2) K/uL Immature Gran # (Auto) (0.00-0.02) K/uL PT (9.0-12.0) Seconds INR (0.9-1.1) APTT (21.0-31.0) Seconds PTT Ratio POC Sodium 142 (135-144) mmol/L Sodium (136-145) mmol/L POC Potassium 3.9 (3.3-5.0) mmol/L Potassium (3.5-5.1) mmol/L POC Chloride 103 (101-112) mmol/L Chloride (98-107) mmol/L Carbon Dioxide (21-32) mmol/L POC Total CO2 24 (24-31) mmol/L Anion Gap (3-11) POC Anion Gap 19.0 (16-25) mmol/L POC BUN 11 (7-18) mg/dl BUN (7-18) mg/dl Creatinine (0.6-1.4) mg/dl POC Creatinine 1.2 (0.6-1.3) mg/dl Est Cr Clr Drug Dosing ml/min Est GFR ( Amer) ml/min Est GFR (Non-Af Amer) ml/min BUN/Creatinine Ratio (10-20) Glucose (70-99) mg/dl POC Glucose (70-99) mg/dl POC Glucose (other) 97 (70-99) mg/dl Estimat Average Glucose Hemoglobin A1c Calcium (8.5-10.1) mg/dl POC Ioniz Calcium Amanda 1.21 (1.12-1.32) mmol/l Magnesium (1.8-2.4) mg/dl Total Bilirubin (0.2-1) mg/dl AST (15-37) U/L ALT (12-78) U/L Alkaline Phosphatase (45-117) U/L Total Protein (6.4-8.2) gm/dl Albumin (3.4-5.0) gm/dl Globulin (2.5-4.0) gm/dl Albumin/Globulin Ratio (0.9-2) Triglycerides Cholesterol LDL Cholesterol, Calc VLDL Cholesterol, Calc HDL Cholesterol Cholesterol/HDL Ratio COVID-19 Eval Order Covid19 at [facility] SARS-CoV-2 (PCR) NEGATIVE (Negative) 02/14/21 02/14/21 02/14/21 Range/Units 11:46 11:30 11:30 WBC (4.8-10.8) K/uL RBC (4.7-6.1) M/uL Hgb (14.0-18.0) g/dL POC Hgb (14.0-18.0) g/dl Hct (42-52) % POC Hct (42-52) % MCV (80-100) fL MCH (25-34) pg MCHC (32-36) g/dL RDW Std Deviation (36.4-46.3) fL RDW Coeff of Ania (11.5-14.5) % Plt Count (130-400) K/uL MPV (7.4-10.4) fL Immature Gran % (Auto) % Neut % (Auto) % Lymph % (Auto) % Wetzel % (Auto) % Eos % (Auto) % Baso % (Auto) % Neut # (Auto) (1.4-6.5) K/uL Lymph # (Auto) (1.2-3.4) K/uL Wetzel # (Auto) (0.11-0.59) K/uL Eos # (Auto) (0-0.5) K/uL Baso # (Auto) (0-0.2) K/uL Immature Gran # (Auto) (0.00-0.02) K/uL PT 10.3 (9.0-12.0) Seconds INR 1.0 (0.9-1.1) APTT 26.4 (21.0-31.0) Seconds PTT Ratio 1.0 POC Sodium (135-144) mmol/L Sodium 140 (136-145) mmol/L POC Potassium (3.3-5.0) mmol/L Potassium 4.2 (3.5-5.1) mmol/L POC Chloride (101-112) mmol/L Chloride 108 H (98-107) mmol/L Carbon Dioxide 26 (21-32) mmol/L POC Total CO2 (24-31) mmol/L Anion Gap 6.0 (3-11) POC Anion Gap (16-25) mmol/L POC BUN (7-18) mg/dl BUN 11 (7-18) mg/dl Creatinine 1.14 (0.6-1.4) mg/dl POC Creatinine (0.6-1.3) mg/dl Est Cr Clr Drug Dosing 55.0 ml/min Est GFR ( Amer) 70.0 ml/min Est GFR (Non-Af Amer) 60.4 ml/min BUN/Creatinine Ratio 9.8 L (10-20) Glucose 95 (70-99) mg/dl POC Glucose 91 (70-99) mg/dl POC Glucose (other) (70-99) mg/dl Estimat Average Glucose Hemoglobin A1c Calcium 9.2 (8.5-10.1) mg/dl POC Ioniz Calcium Amanda (1.12-1.32) mmol/l Magnesium 2.2 (1.8-2.4) mg/dl Total Bilirubin 0.9 (0.2-1) mg/dl AST 19 (15-37) U/L ALT 25 (12-78) U/L Alkaline Phosphatase 89 (45-117) U/L Total Protein 7.6 (6.4-8.2) gm/dl Albumin 3.9 (3.4-5.0) gm/dl Globulin 3.7 (2.5-4.0) gm/dl Albumin/Globulin Ratio 1.1 (0.9-2) Triglycerides Cholesterol LDL Cholesterol, Calc VLDL Cholesterol, Calc HDL Cholesterol Cholesterol/HDL Ratio COVID-19 Eval Order SARS-CoV-2 (PCR) (Negative) 02/14/21 Range/Units 11:30 WBC 7.93 (4.8-10.8) K/uL RBC 4.74 (4.7-6.1) M/uL Hgb 15.0 (14.0-18.0) g/dL POC Hgb (14.0-18.0) g/dl Hct 43.1 (42-52) % POC Hct (42-52) % MCV 90.9 (80-100) fL MCH 31.6 (25-34) pg MCHC 34.8 (32-36) g/dL RDW Std Deviation 44.3 (36.4-46.3) fL RDW Coeff of Ania 13.3 (11.5-14.5) % Plt Count 143 (130-400) K/uL MPV 12.0 H (7.4-10.4) fL Immature Gran % (Auto) % Neut % (Auto) % Lymph % (Auto) % Wetzel % (Auto) % Eos % (Auto) % Baso % (Auto) % Neut # (Auto) (1.4-6.5) K/uL Lymph # (Auto) (1.2-3.4) K/uL Wetzel # (Auto) (0.11-0.59) K/uL Eos # (Auto) (0-0.5) K/uL Baso # (Auto) (0-0.2) K/uL Immature Gran # (Auto) (0.00-0.02) K/uL PT (9.0-12.0) Seconds INR (0.9-1.1) APTT (21.0-31.0) Seconds PTT Ratio POC Sodium (135-144) mmol/L Sodium (136-145) mmol/L POC Potassium (3.3-5.0) mmol/L Potassium (3.5-5.1) mmol/L POC Chloride (101-112) mmol/L Chloride (98-107) mmol/L Carbon Dioxide (21-32) mmol/L POC Total CO2 (24-31) mmol/L Anion Gap (3-11) POC Anion Gap (16-25) mmol/L POC BUN (7-18) mg/dl BUN (7-18) mg/dl Creatinine (0.6-1.4) mg/dl POC Creatinine (0.6-1.3) mg/dl Est Cr Clr Drug Dosing ml/min Est GFR ( Amer) ml/min Est GFR (Non-Af Amer) ml/min BUN/Creatinine Ratio (10-20) Glucose (70-99) mg/dl POC Glucose (70-99) mg/dl POC Glucose (other) (70-99) mg/dl Estimat Average Glucose Hemoglobin A1c Calcium (8.5-10.1) mg/dl POC Ioniz Calcium Amanda (1.12-1.32) mmol/l Magnesium (1.8-2.4) mg/dl Total Bilirubin (0.2-1) mg/dl AST (15-37) U/L ALT (12-78) U/L Alkaline Phosphatase (45-117) U/L Total Protein (6.4-8.2) gm/dl Albumin (3.4-5.0) gm/dl Globulin (2.5-4.0) gm/dl Albumin/Globulin Ratio (0.9-2) Triglycerides Cholesterol LDL Cholesterol, Calc VLDL Cholesterol, Calc HDL Cholesterol Cholesterol/HDL Ratio COVID-19 Eval Order SARS-CoV-2 (PCR) (Negative) Diagnostic Findings Chest X-Ray 02/14/21 11:29 XR chest 1V portable HISTORY: Vertigo. stroke alert COMPARISON: None. FINDINGS: The lungs are clear. Cardiac silhouette is normal in size. No pleural effusions. No pneumothorax. IMPRESSION: No acute process. ACT 112: Negative or not required by law. Electronically signed by: Alberto Mcdonald M.D. 02/14/2021 3:[address] 02/14/21 11:29 CT head/brain wo con CLINICAL HISTORY: Stroke Alert Technique: Contiguous axial CT images of the head were acquired from the base of the skull to the vertex without intravenous contrast administration. Images were viewed in brain, subdural and bone windows. Automated dose lowering techniques and/or adjustment according to patient size were utilized for this exam. Comparison: None available at the time of this dictation. Findings: The ventricles, basal cisterns, and cerebral sulci are normal. There is no acute intracranial hemorrhage or evidence of acute territorial infarction. Neither mass effect, shift of the midline structures, nor abnormal extra-axial fluid collections are shown. Imaged portions of the paranasal sinuses and mastoid air cells are clear. The orbits appear normal. There are no acute fractures of the calvaria or scalp swelling. Impression: No acute intracranial hemorrhage, no evidence of acute territorial infarction or other acute intracranial disease process. ACT 112: Negative or not required by law. Electronically signed by: Javier Meredith M.D. 02/14/2021 11:54 AM Head CTA 02/14/21 11:46 HEAD CTA HISTORY: vertigo, left lower extremity weakness TECHNIQUE: Multiaxial CT images of the head were performed both before and after the intravenous administration of contrast to evaluate the major cerebral vessels. Maximum intensity projection images were also obtained. A dose lowering technique was utilized adhering to the principles of ALARA. COMPARISON: None. FINDINGS: Please refer to same day head CT for further evaluation of the brain parenchyma. The major dural venous sinuses are patent. The distal basilar artery and bilateral P1 segments are hypoplastic. The dinkey mechanic are primarily fed through the bilateral posterior communicating arteries. These are considered to be normal variants. Mild calcified plaque within the bilateral carotid siphons. Visualized intracranial internal carotid arteries, distal vertebral arteries, and basilar artery are patent. There is no significant stenosis, occlusion, or aneurysm seen within the bilateral ACAs, MCAs, or dinkey mechanic. IMPRESSION: No significant stenosis, occlusion, or aneurysm within the [place]. ACT 112: Negative or not required by law. Electronically signed by: Alberto Mcdonald M.D. 02/14/2021 12:57 PM Neck CTA 02/14/21 11:46 CT ANGIOGRAM OF THE NECK CLINICAL HISTORY: Vertigo. COMPARISON STUDY: No priors. TECHNIQUE: Following the IV administration of 120 of Optiray 320, CT angiogram of the neck was performed from the aortic arch to the skull base. Images are reviewed in the axial, sagittal, and coronal planes. 3-D MIPS images are created and assessed. IV contrast was administered without complication. All measurements were calculated based on NASCET criteria. A dose lowering technique was utilized adhering to the principles of ALARA. FINDINGS: Thoracic aorta: Visualized portions of the thoracic aorta are normal in caliber. The aortic arch demonstrates standard 3-vessel anatomy. Right carotid arterial system: The right common carotid artery is widely patent. Advanced atherosclerotic plaque in the carotid bulb causes less than 50% luminal narrowing at the origin of the internal carotid artery. The remainder of the right internal carotid artery as was the right external carotid artery are widely patent. Left carotid arterial system: The left common carotid artery is widely patent. There is advanced atherosclerotic plaque in the carotid bulb. This causes less than 50% luminal narrowing at the origin of the left internal carotid artery. The remainder of the left internal carotid artery as well as the left external carotid artery are widely patent. Vertebral arteries: The vertebral arteries are widely patent bilaterally and codominant. Subclavian arteries: Mildly patent bilaterally. Intracranial vasculature: The visualized intracranial vessels at the skull base are patent. Jugular veins: Widely patent bilaterally. Brain parenchyma: The visualized brain parenchyma the skull base is within normal limits. Lung apices: Emphysematous change is noted. There is a 3.6 x 1.6 cm groundglass focus with cystic change identified in the right apex on image #32. Soft tissues: The visualized pharyngeal soft tissues are normal in appearance noting angiographic phase technique. The oropharyngeal airway appears widely patent. The salivary and thyroid glands are normal in appearance. No cervical lymphadenopathy is seen. Skeletal structures: The skeletal structures are osteopenic. The visualized calvarium at the skull base appears intact. The imaged cervical spine is maintained noting multilevel spondylosis. No lytic or blastic lesion is seen. Sinuses and mastoids: Mild mucosal thickening is seen within the left sphenoid sinus and both maxillary antra. There is trace left mastoid effusion. The right mastoid air cells are well pneumatized. IMPRESSION: 1. Atherosclerotic plaque causes less than 50% luminal narrowing at the origin of both internal carotid arteries. 2. Otherwise unremarkable CT angiogram of the neck. 3. Emphysema. 4. There is a 3.6 cm groundglass focus in the right upper lobe as detailed above. This is pathologically indeterminant, and although this could be on an infectious/inflammatory basis a low-grade neoplasm could also have this appearance. Follow-up with a dedicated chest CT in one month's time is recommended for reevaluation. ACT 112: Positive. There are findings on this exam that require communication between the performing entity and the patient following Patient Test Result Information Act ([place] Act 112) guidelines. Electronically signed by: Zach Rincon M.D. 02/14/2021 12:58 PM Orbit X-Ray 02/14/21 19:32 XR orbits for MRI HISTORY: 80 years-old Male Screening for foreign body for MRI COMPARISON: Head CT of same day TECHNIQUE: 3 views of the orbits FINDINGS: No opaque foreign body. Orbits identified. No acute facial bone fracture. The mastoid air cells and paranasal sinuses are generally clear. IMPRESSION: No opaque foreign body of the orbits. ACT 112: Negative or not required by law. The above report was generated using voice recognition software. It may contain grammatical, syntax or spelling errors. Electronically signed by: Jorge Cotton M.D. 02/14/2021 7:51 PM PG Care Time/CCT Total # of Minutes Spent Total Time Spent with Patient: Total time spent is greater than 50% in coordination of care (as documented) at patient's floor/unit and/or counseling patient: Coding
[2021-02-15 08:26] LABS: BUN Creatinine Ratio 10.8 (10-20); Calcium 8.8 mg/dl (8.5-10.1); Creatinine Clr Calc Pharmacy 52.7 ml/min; Est GFR (African American) 66.5 ml/min; Est GFR (Non-African American) 57.3 ml/min; Potassium 4.1 mmol/L (3.5-5.1)
[2021-02-15 08:35] LABS: Estimated Average Glucose 105 mg/dl; Hemoglobin A1C 5.3 % (4.5-5.6)
--- NOTE | 2021-02-15 08:41 | XCELERA ---
[id number]
[2021-02-15] MEDS ORDERED: ASPIRIN 81 MG ECTAB PO SCH (09:00)
[2021-02-15] MEDS ORDERED: FLUTICASONE/VILANTEROL 100/25MCG 14 PUFFS/INHALER INH SCH (09:00)
[2021-02-15] MEDS ORDERED: PANTOprazole 40 MG TAB PO SCH (09:00)
[2021-02-15] MEDS ORDERED: MULTIVITAMIN TAB PO SCH (09:00)
[2021-02-15] MEDS ORDERED: ATORVASTATIN 40 MG TAB PO SCH (09:00)
[2021-02-15] MEDS ORDERED: LOSARTAN POTASSIUM 25 MG TAB PO SCH (09:00)
--- NOTE | 2021-02-15 09:29 | Magnetic Resonance Report ---
MR brain wo con CLINICAL HISTORY: eval for stroke TECHNIQUE: Multiplanar and multisequence MR images of the brain were obtained without intravenous con trast. Comparison: None available at the time of this dictation. FINDINGS: No abnormal restricted diffusion is identified. Foci of T2 and FLAIR hyperintensity are noted in the paraventricular areas consistent with chronic small vessel ischemic disease. The ventricular system i s normal in appearance. No extra axial fluid collections are seen. There are no masses, mass effect, or midline shift. The corpus callosum, pituitary gland, and cerebellar tonsils appear grossly unrema rkable. Flow voids of the major intracranial arterial vessels are identified. The imaged portions of the para nasal sinuses, mastoid air cells, and orbits are unremarkable. IMPRESSION: No acute abnormalities. ACT 112: Negative or not required by law. Electronically signed by: Javier Meredith M.D. 02/15/2021 9:28 AM
--- NOTE | 2021-02-15 09:56 | Discharge Summary ---
Date of Service February 15, 2021 Admission HPI Per Admitting Provider Patient presents with description of vertigo, left lower extremity weakness. The patient states that he woke up and experienced the symptoms patient went to bed in normal state. The Patient denies any facial droop or slurred speech. No prior history of TIA or stroke. The patient does feel as though he is spinning. The patient has a known history of vertigo. Patient denies any chest pains or shortness of breath. Patient denies any abdominal pain or nausea vomiting. Patient does feel as though his left lower extremity has resolved. . Patient denies any falls or trauma. He is not take any blood thinning medications. Patient initial NIH stroke scale of 0 therefore telestroke was not enacted by the emergency department physician. Patient was given meclizine in emergency department CT head on presentation shows no acute cranial hemorrhage evidence of acute territorial infarction or other intracranial disease CT angiography of the head and neck shows no significant stenosis occlusion or aneurysm within the robinson of [place], internal carotid arteries have less than 50% narrowing. There is incidentally noted 3.6 cm groundglass focus of the right upper lobe as detailed with cystic change with a baseline of emphysema. Admission Exam Per Admitting Provider The patient appeared well nourished and normally developed. Vital signs as documented. Head exam is normocephalic atraumatic Neck is without JVD, thyromegaly, or carotid bruits. Lungs are clear to auscultation, no focal loss of breath sounds Cardiac exam, Rhythm is regular.. No murmurs, rubs or gallops. Abdominal exam reveals normal bowel sounds, soft non tender, no masses Extremities are nonedematous and both pedal pulses are present Neurologic exam is alert and oriented, no focal loss of strength or sensation Skin is without bruises or rashes Psychologically is without concerns for anxiety or depression Principal Diagnosis TIA Discharge Exam Constitutional WD/WN, vitals as above no acute distress Eyes + anicteric sclerae and PERRL ENMT mmm Neck trachea midline, no thyromegaly Respiratory normal respiratory effort, lungs clear to auscultation Cardiovascular Rate/Rhythm: regular rhythm and + bradycardic Heart Sounds: normal S1; no gallop, no murmur and no cardiac rub Gastrointestinal (Abdomen) normal bowel sounds, soft, nontender, no hepatosplenomegaly Musculoskeletal no cyanosis or clubbing, extremities motor strength 5/5 Skin warm, dry Neurologic PERRL, EOMI, accommodation nl, no face palsy, no dysarthria Psychiatric A+Ox3, euthymic affect Genitourinary no painting Lymphatic no cervical or axillary lymphadenopathy Discharge Data Allergies Allergy/AdvReac Type Severity Reaction Status Date / Time No Known Allergies Allergy Unverified 02/14/21 12:25 Consultations 02/14/21 13:38 ED Decision to Admit Stat Ordered Studies Chest X-Ray 02/14/21 11:29 XR chest 1V portable HISTORY: Vertigo. stroke alert COMPARISON: None. FINDINGS: The lungs are clear. Cardiac silhouette is normal in size. No pleural effusions. No pneumothorax. IMPRESSION: No acute process. ACT 112: Negative or not required by law. Electronically signed by: Alberto Mcdonald M.D. 02/14/2021 3:[address] 02/14/21 11:29 CT head/brain wo con CLINICAL HISTORY: Stroke Alert Technique: Contiguous axial CT images of the head were acquired from the base of the skull to the vertex without intravenous contrast administration. Images were viewed in brain, subdural and bone windows. Automated dose lowering techniques and/or adjustment according to patient size were utilized for this exam. Comparison: None available at the time of this dictation. Findings: The ventricles, basal cisterns, and cerebral sulci are normal. There is no acute intracranial hemorrhage or evidence of acute territorial infarction. Neither mass effect, shift of the midline structures, nor abnormal extra-axial fluid collections are shown. Imaged portions of the paranasal sinuses and mastoid air cells are clear. The orbits appear normal. There are no acute fractures of the calvaria or scalp swelling. Impression: No acute intracranial hemorrhage, no evidence of acute territorial infarction or other acute intracranial disease process. ACT 112: Negative or not required by law. Electronically signed by: Javier Meredith M.D. 02/14/2021 11:54 AM Head CTA 02/14/21 11:46 HEAD CTA HISTORY: vertigo, left lower extremity weakness TECHNIQUE: Multiaxial CT images of the head were performed both before and after the intravenous administration of contrast to evaluate the major cerebral vessels. Maximum intensity projection images were also obtained. A dose lowering technique was utilized adhering to the principles of ALARA. COMPARISON: None. FINDINGS: Please refer to same day head CT for further evaluation of the brain parenchyma. The major dural venous sinuses are patent. The distal basilar artery and bilateral P1 segments are hypoplastic. The armoured car escort are primarily fed through the bilateral posterior communicating arteries. These are considered to be normal variants. Mild calcified plaque within the bilateral carotid siphons. Visualized intracranial internal carotid arteries, distal vertebral arteries, and basilar artery are patent. There is no significant stenosis, occlusion, or aneurysm seen within the bilateral ACAs, MCAs, or armoured car escort. IMPRESSION: No significant stenosis, occlusion, or aneurysm within the robinson of [place]. ACT 112: Negative or not required by law. Electronically signed by: Alberto Mcdonald M.D. 02/14/2021 12:57 PM Neck CTA 02/14/21 11:46 CT ANGIOGRAM OF THE NECK CLINICAL HISTORY: Vertigo. COMPARISON STUDY: No priors. TECHNIQUE: Following the IV administration of 120 of Optiray 320, CT angiogram of the neck was performed from the aortic arch to the skull base. Images are reviewed in the axial, sagittal, and coronal planes. 3-D MIPS images are created and assessed. IV contrast was administered without complication. All measurements were calculated based on NASCET criteria. A dose lowering technique was utilized adhering to the principles of ALARA. FINDINGS: Thoracic aorta: Visualized portions of the thoracic aorta are normal in caliber. The aortic arch demonstrates standard 3-vessel anatomy. Right carotid arterial system: The right common carotid artery is widely patent. Advanced atherosclerotic plaque in the carotid bulb causes less than 50% luminal narrowing at the origin of the internal carotid artery. The remainder of the right internal carotid artery as was the right external carotid artery are widely patent. Left carotid arterial system: The left common carotid artery is widely patent. There is advanced atherosclerotic plaque in the carotid bulb. This causes less than 50% luminal narrowing at the origin of the left internal carotid artery. The remainder of the left internal carotid artery as well as the left external carotid artery are widely patent. Vertebral arteries: The vertebral arteries are widely patent bilaterally and codominant. Subclavian arteries: Mildly patent bilaterally. Intracranial vasculature: The visualized intracranial vessels at the skull base are patent. Jugular veins: Widely patent bilaterally. Brain parenchyma: The visualized brain parenchyma the skull base is within normal limits. Lung apices: Emphysematous change is noted. There is a 3.6 x 1.6 cm groundglass focus with cystic change identified in the right apex on image #32. Soft tissues: The visualized pharyngeal soft tissues are normal in appearance noting angiographic phase technique. The oropharyngeal airway appears widely patent. The salivary and thyroid glands are normal in appearance. No cervical lymphadenopathy is seen. Skeletal structures: The skeletal structures are osteopenic. The visualized calvarium at the skull base appears intact. The imaged cervical spine is maintai jb noting multilevel spondylosis. No lytic or blastic lesion is seen. Sinuses and mastoids: Mild mucosal thickening is seen within the left sphenoid sinus and both maxillary antra. There is trace left mastoid effusion. The right mastoid air cells are well pneumatized. IMPRESSION: 1. Atherosclerotic plaque causes less than 50% luminal narrowing at the origin of both internal carotid arteries. 2. Otherwise unremarkable CT angiogram of the neck. 3. Emphysema. 4. There is a 3.6 cm groundglass focus in the right upper lobe as detailed above. This is pathologically indeterminant, and although this could be on an infectious/inflammatory basis a low-grade neoplasm could also have this appearance. Follow-up with a dedicated chest CT in one month's time is recommended for reevaluation. ACT 112: Positive. There are findings on this exam that require communication between the performing entity and the patient following Patient Test Result Information Act ([place] Act 112) guidelines. Electronically signed by: Zach Rincon M.D. 02/14/2021 12:58 PM Brain MRI 02/14/21 18:54 MR brain wo con CLINICAL HISTORY: eval for stroke TECHNIQUE: Multiplanar and multisequence MR images of the brain were obtained without intravenous contrast. Comparison: None available at the time of this dictation. FINDINGS: No abnormal restricted diffusion is identified. Foci of T2 and FLAIR hyperintensity are noted in the paraventricular areas consistent with chronic small vessel ischemic disease. The ventricular system is normal in appearance. No extra axial fluid collections are seen. There are no masses, mass effect, or midline shift. The corpus callosum, pituitary gland, and cerebellar tonsils appear grossly unremarkable. Flow voids of the major intracranial arterial vessels are identified. The imaged portions of the paranasal sinuses, mastoid air cells, and orbits are unremarkable. IMPRESSION: No acute abnormalities. ACT 112: Negative or not required by law. Electronically signed by: Javier Meredith M.D. 02/15/2021 9:28 AM Orbit X-Ray 02/14/21 19:32 XR orbits for MRI HISTORY: 80 years-old Male Screening for foreign body for MRI COMPARISON: Head CT of same day TECHNIQUE: 3 views of the orbits FINDINGS: No opaque foreign body. Orbits identified. No acute facial bone fracture. The mastoid air cells and paranasal sinuses are generally clear. IMPRESSION: No opaque foreign body of the orbits. ACT 112: Negative or not required by law. The above report was generated using voice recognition software. It may contain grammatical, syntax or spelling errors. Electronically signed by: Jorge Cotton M.D. 02/14/2021 7:51 PM Hospital Course (1) TIA (transient ischemic attack): Patient states that his dizzy episode this morning was markedly different than previous vertigo. Patient states his left leg did not listen to what he was telling him he drugged a bit. These symptoms of both since resolved on admission (of note he took an ASA at home and was to be taking this daily but hadn't been compliant) CTA Head/neck with les than 50% luminal narrowing at origin of internal carotids, no acute CVA MRI Brain without acute finding ECHO without evidence for interatrial shunt. LV normal in size/function. EF 60- 65%. RV mildly dilated and RVSP elevated 30-40mmHg Telemetry with sinus rhythm/sinus freda (patient reports HR always on low side, not on BB) A1c 5.3 Lipid panel acceptable Started and continued on ASA 81mg , atorvastatin 40mg PT/OT consulted -- stable for d/c home Set up for outpatient 30 day event monitor to look for occult Afib (2) COPD (chronic obstructive pulmonary disease): Patient COPD has been stable for some time on Breo Ellipta CT noted 3.6 cm groundglass focus in the right upper lobe as detailed above. This is pathologically indeterminant, and although this could be on an infectious/inflammatory basis a low-grade neoplasm could also have this appearance. Follow-up with a dedicated chest CT in one month's time is recommended for reevaluation. Per patient has appt with pulmonary in next 1-2 weeks and they have "been following"? (3) Hypertension: Patient's blood pressure was markedly elevated on presentation patient denies missing medications typically only controlled with losartan. Hard to know whether his hypertension was cause or effect being could this be hypertensive urgency causing his neurological symptoms or could be neurological symptoms causing his hypertension. BP was astill elevated and decision to increase losartan to 50mg daily for better BP control -- rx sent at d/c F/u PCP (4) GERD (gastroesophageal reflux disease): Stable Continue protonix 40mg daily (5) Vertigo: Hx of vertigo, but current episode felt different. See above (6) DVT prophylaxis: Ambulation, inpatient stay <24 hours (7) History of prostate cancer: radiation seeds, with no incontinence or retention (8) Pulmonary nodule: seen on CT imaging RUL -- rec f/u CT in 1month outpatient as above with his professional development director Total Time Total Time Spent Total Time Spent (In Minutes): 45 Discharge Plan Discharge Items Patient Disposition: Home - Self-Care Reason For Visit: TIA, HYPERTENSIVE URGENCY Discharge Diagnosis: TIA Goals: You have been hospitalized for an acute medical problem. During your stay at [facility], we have made an effort to correct the problem that brought you to the hospital while keeping you as comfortable as possible. Medications were used to bring your condition under control and your discharge instructions will include directions for any medications you should take after leaving the hospital. Please make sure you see your Primary Care Provider as part of your follow up plan. Activity: Resume your previous activity Non-emergency contact: Primary Care Provider and Donor Services Specialist Call non-emergency contact if: you have any medication questions and your symptoms worsen Follow-up/Referrals: Adrián Colin PA-C [Primary Care Provider] - (PLEASE CALL YOUR PRIMARY CARE PROVIDER TO SCHEDULE A DISCHARGE FOLLOW-UP APPOINTMENT WITHIN 7-10 DAYS.) Diet: Heart Healthy Addtl Attending Provider Instructions: You have been hospitalized for weakness/vertigo. Imaging has been negative for acute stroke and this could have possibly been a small transient period of lack of blood flow that caused this, but thankfully no stroke. Other imaging has also been negative including a Brain MRI. You should be taking a baby aspirin daily as discussed, and have been started on atorvastatin for prevention. This is a cholesterol medication and is best taken at night to prevent cramping. Therapy has evaluated you and felt you are able to return home safely. You have been in a normal rhythm on the vehicle monitor technician however you will be set up with a Holter (cardiac event) monitor to see if you have any irregular rhythms that line up with symptoms that would warrant further treatment/testing. Continue to monitor your blood pressures at home and notify your PCP if top number >160-170 consistently or if the bottom number is over 85-90, or if you have symptoms. Your losartan has been increased to 50mg by mouth daily for b aquiles blood pressure control. Please follow up with your PCP in the next week to monitor your progress. There was a finding of a pulmonary nodule on imaging that it is recommended you have a repeat CT scan in 1 month and further follow up with your Donor Services Specialist. Please return to the emergency department with any recurrence of symptoms, fever, chest pain, shortness of breath, or for any other symptoms that are concerning for you. It has been a pleasure being a part of the medical team providing for you while you have been in the hospital. Take care! Addtl Drafter Electrical Provider Instructions: Risk Factors for Stroke: You can reduce your chances of stroke by working with your medical provider to adopt a healthy lifestyle. Some specific ways to lower your chance of stroke are: * If you are a smoker, now is the time to stop smoking cigarettes * If you are diabetic, improve the control of your blood sugars * Avoid excessive amounts of alcohol * Control high blood pressure * Lose weight if you are overweight * Be sure to lead an active lifestyle * Eat a healthy diet low in salt, cholesterol and fat You should know about other risk factors for stroke that you are unable to control. These include: * Age 55 years or older * Male gender * Certain racial groups: , or / * Family History of Stroke, Mini stroke or Heart Attack * Sickle Cell Disease Follow Up: It is important for you to keep your follow up appointments with your medical provider. Who to Call and When: Medical Emergencies: Call 911 immediately if you experience any of the following warning signs and symptoms of Stroke: * Sudden numbness or weakness of the face, arm or leg, especially on one side of the body * Sudden confusion, trouble speaking or understanding * Sudden trouble seeing in one or both eyes * Sudden trouble walking, dizziness, loss of balance or coordination * Sudden severe headache with no cause Do not delay calling 911 if you experience any warning signs or symptoms of a stroke. Delay in seeking medical attention may affect what treatments can be given to you. . Pending Studies at Discharge: No Stand-Alone Forms: Medications to Prevent Stroke, My [facility] [employer], Smoking Cessation Medications and DC Order Prescriptions: New atorvastatin 40 mg Tablet 40 mg PO HS 30 Days Qty: 30 RF: 0 aspirin 81 mg Tablet,Delayed Release (Dr/Ec) 81 mg PO QAM 30 Days Qty: 30 RF: 0 Continued multivitamin Tablet 1 tab PO DAILY RF: 0 pantoprazole 40 mg tablet,delayed release (DR/EC) 40 mg PO DAILY RF: 0 Breo Ellipta 100-25 mcg/dose blister with device 1 inh INHALATION Q2D RF: 0 Changed losartan 25 mg tablet 50 mg PO DAILY 30 Days Qty: 60 RF: 0 Discharge Orders: Discharge Order (Routine); Ordered 02/15/21 Ordered By: Leonor Washington Admission Data Admit Date/Time: 02/14/21 15:06 Attending Provider: Genevieve Park Admit Provider: Jevon Hahn Primary Care Provider: Adrián Colin Other Providers: Jevon Hahn Other Interventions: Discharge Summary Assessment (RN) Last Done: 02/15/21 12:48 Supervising Physician Co-Signing Physician Notes PA Supervision Note: I personally saw and examined the patient. I verified all huang points and agree with SIOBHAN Washington with the following exceptions and/or additions: S-patient feeling well and all symptoms have resolved at the time of discharge. No further dizziness, no further left lower extremity weakness. No chest pains or shortness of breath, no headache. O- Vitals reviewed Gen: AAOx3, NAD HEENT: Anicteric sclerae, EOMI CV: RRR no mgr nl S1S2 Pulm: CTAB no wcr Abd: +BS soft NT ND no masses or hernias Ext: No edema, 2+ DP pulses Skin: No rashes, warm/dry Neuro: Full strength throughout, cranial nerves II through XII grossly intact [id number] male here with TIA. Work-up unremarkable Discharge to home on aspirin 81 mg daily and high intensity atorvastatin 30-day event monitor to monitor for occult atrial fibrillation is indicated and will be arranged after discharge Needs improved blood pressure control with increased dose of losartan Stable for discharge home Coding Level of Care Code 52157 OBS Care - Discharge Diagnoses TIA (transient ischemic attack) G45.9 COPD (chronic obstructive pulmonary disease) J44.9 COPD type: unspecified COPD Hypertension I10 GERD (gastroesophageal reflux disease) K21.9 Vertigo R42 DVT prophylaxis Z29.9 History of prostate cancer Z85.46 Pulmonary nodule R91.1
[2021-02-15] MEDS ORDERED: STROKE PATIENT DISCHARGE STA (10:07)
[2021-02-15 10:48] LABS: Lyme Ab IgG w/WB Rflx Negative (Negative); Lyme Ab IgM w/WB Rflx Negative (Negative)
--- NOTE | 2021-02-15 10:54 | Pharmacy Report ---
Pharmacist Stroke Counseling - Date of Service February 15, 2021 - Scope: Pharmacy has been consulted to provide medication discharge counseling for this patient admitted with transient ischemic attack as per the Pharmacist Discharge Counseling for Stroke Patients Protocol. - Medications on Discharge: Home Medications Medication Instructions Recorded Confirmed fluticasone furoate 100 1 inh INHALATION Q2D 02/14/21 02/14/21 mcg-vilanterol 25 mcg/dose inhalation powder (Breo Ellipta) multivitamin 1 tab PO DAILY 02/14/21 02/14/21 pantoprazole 40 mg tablet,delayed 40 mg PO DAILY 02/14/21 02/14/21 release New Rx's Medication Instructions Recorded aspirin 81 mg tablet,delayed 81 mg PO QAM 30 Days #30 tab 02/15/21 release atorvastatin 40 mg tablet 40 mg PO HS 30 Days #30 tab 02/15/21 losartan 25 mg tablet 50 mg PO DAILY 30 Days #60 tab 02/15/21 - Action: The above medications, specifically ones for stroke treatment/prophylaxis, have been reviewed in detail with the patient prior to discharge. This includes indication, common adverse reactions, drug interactions, and medication administration. Medication counseling has been employed using the teach-back method to ensure understanding. - Outcome: The patient have demonstrated understanding of the medications. Additional comments: * Patient was given an opportunity to have any/all questions asked. Thank you for allowing pharmacy to be involved in the care of this patient. Please call [phone] with any additional questions
== END 2021-02-15 14:02 | disposition home or self-care (01) ==
LOC: EDINP 11:02 → ED 11:02 → SUATTDRO 15:06 → 2W 17:30